=== PATIENT | female | born 1935 | race Caucasian/White ===

== ENCOUNTER 2018-02-28 15:23 | Emergency (ER) | payer MEDICARE, OTHER, SELFPAY ==
[2018-02-28 15:25] VITALS: BP 124/71; PULSE 80; RESP 14; TEMP 36.7; O2SAT 96; BMI 22.9
--- NOTE | 2018-02-28 16:10 | RAD_ITS ---
STUDY: X-RAY CHEST REASON FOR EXAM: Female, 82 years old. Weakness TECHNIQUE: Frontal view of the chest COMPARISON: None. FINDINGS: The lungs are clear. There are no pleural effusions. There is no pneumothorax. The heart is normal in size. The visualized osseous structures are within normal limits. RAD/Chest 1 View IMPRESSION: No acute thoracic pathology. Electronically Signed: Say Dorman, at 16:37 EDT Tel , Service support ,
--- NOTE | 2018-02-28 16:10 | CT_ITS ---
STUDY: CT BRAIN WITHOUT CONTRAST REASON FOR EXAM: Female, 82 years old. Right-sided weakness RADIATION DOSAGE (If Supplied By Facility): CTDIvol = ( 60.81 ) mGy, DLP = ( 1112.69 ) mGycm TECHNIQUE: Transaxial CT imaging of the brain was performed without administration of intravenous contrast material. Individualized dose optimization techniques were used for this CT. COMPARISON: None. FINDINGS: There is no acute bleed or infarct. There are chronic ischemic and atrophic changes. 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 The ventricles are normal in configuration. There is no hydrocephalus. The visualized paranasal sinuses are clear. The mastoid air cells are well aerated. There is no skull fracture. CT/Brain/Head without Contrast IMPRESSION: No acute intracranial abnormality. Chronic ischemic and atrophic changes. Lipoma of the corpus callosum. Electronically Signed: Say Dorman, at 17:45 EDT Tel , Service support ,
--- NOTE | 2018-02-28 16:10 | EKG12_ITS ---
Test Reason : NEURO S/SX Blood Pressure : / mmHG Vent. Rate : 065 BPM Atrial Rate : 065 BPM P-R Int : 178 ms QRS Dur : 080 ms QT Int : 444 ms P-R-T Axes : 038 028 051 degrees QTc Int : 461 ms Normal sinus rhythm Normal ECG Confirmed by CHRISTY HERNANDEZ ([id number]), senior editor FERNANDO RODARTE ([id number] on 03/12/2018 5:34:49 PM Referred By: ARMAND Confirmed By:CHRISTY HERNANDEZ
--- NOTE | 2018-02-28 16:13 | ED.VISSUMM ---
- ER Visit Summary Date of Service: 02/28/18 Chief Complaint: Right hand numbness History of Present Illness: The patient is a 82 F intermittent right hand numbness. Symptoms started for the first time yesterday around 11:30 AM. Symptoms last for several minutes at a time and she has weakness in her right hand. She is dropping things and her signature has changed. She denies any pain. Denies any speech changes or facial droop. Denies any other weakness. Denies numbness. Denies any symptoms currently. No history of this. 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 She denies any history of high blood pressure, diabetes or high cholesterol. Non-smoker. No blood thinners other than aspirin. No history of heart or lung disease. No history of aortic or other vascular disease signs the retinal occlusion remotely. Physical Examination: Afebrile and vital signs unremarkable. Alert and oriented. No acute distress. Sitting comfortably. Head and neck atraumatic. Heart regular. Lungs clear. Skin appears normal. Cranial nerves grossly intact. Normal strength and sensation. Normal coordination. Normal speech. No facial droop. NIH stroke scale is 0. Test Results: Stroke workup pending. EKG showed sinus rhythm at a rate of 65. No acute changes. Chest x-ray showed no acute findings. CT head showed no acute abnormalities. She has a lipoma at the corpus callosum and chronic changes. Labs unremarkable. Patient was discussed with Dr. Peres. He advised CTA. This showed no acute abnormalities, aneurysms, or other issues. 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 Patient was informed of this. I do not believe it is causing symptoms. She has no chest pain. No surgical indication at this point. Patient requests discharge. She would like to go home and follow-up as an outpatient. I will refer her back to her primary care doctor. Emergency Department Course and Treatment: As above Treatment Plan: Above Disposition: Discharged Impression: 1. Right hand weakness This note was generated with [employer]oo[employer] dictation software. It may contain incorrect words, spelling, and punctuation that were not noted in review of the chart prior to signing ED Disposition - Plan for ED Patient: Chief Complaint: Neuro S/Sx Referrals: Cherry Faye MD [Primary Care Provider] -
[2018-02-28 16:48] LABS: Absolute Lymphocyte Count 2.35 X10^3/ul (0.83-4.51); Basophil# 0.03 X10^3/uL; Basophil% 0.5 % (0-1); Eosinophil# 0.28 X10^3/uL; Eosinophils% 4.6 % (0-5); Hematocrit 39.8 % (37-47); Hemoglobin 13.5 g/dl (12.0-15.0); Lymphocyte # 2.35 X10^3/ul (4.0); Lymphocyte % 38.8 % (19-41); Mean Corp Hgb Conc 33.9 g/gl (32-36); Mean Corpuscular Hgb 32.5 pg (27.0-32.0); Mean Corpuscular Volume 95.9 fL (81-99); Mean Platelet Vol. 10.8 fl (6.2-12.0); Monocyte# 0.43 X10^3/uL; Monocyte% 7.1 % (0-10); Neutrophil # 2.96 X10^3/uL (2.7-7.7); Platelet Count 212 K/mm3 (150-450); RBC Distribution Width CV 13.5 % (11.6-14.6); RBC Distribution Width SD 46.2 fl (35.1-43.9); Red Blood Count 4.15 M/mm3 (4.2-5.4); White Blood Count 6.1 K/mm3 (4.4-11.0)
[2018-02-28 16:58] LABS: POSITIVE COUNT NO; POSITIVE DIFFERENTIAL NO; POSITIVE MORPHOLOGY NO
[2018-02-28 17:06] LABS: Anion Gap 9 (5-15); BUN 27 mg/dL (7-18); BUN/Creat Ratio 28.5 RATIO (10-20); Calcium,Total 9.1 mg/dL (8.5-10.1); Chloride 107 mmol/L (98-107); Creatinine, Serum 0.95 mg/dL (0.55-1.02); EST Glomerular Filtration Rate 60 mL/min (>60); Est Glom Filt Rate - Afr Amer 73 mL/min (>60); Estimated Creatinine Clearance 39.07 ml/min; Glucose 90 mg/dL (74-106); Potassium 3.8 mmol/L (3.5-5.1); Sodium Level 141 mmol/L (136-145)
[2018-02-28 17:13] LABS: Prothrombin Time (Protime)PT. 13.6 SECONDS (11.7-14.9)
[2018-02-28 17:14] LABS: Partial Thromboplast Time 26.6 Seconds (24.1-36.2)
[2018-02-28 17:30] LABS: Bedside Glucose 94 mg/dL (70-110)
--- NOTE | 2018-02-28 18:05 | CT_ITS ---
CTA Head WO/W Contrast INDICATION: RIGHT HAND WEAKNESS SINCE YESTERDAY COMPARISON: None TECHNIQUE: Noncontrast axial CT of the brain (reported separately) followed by high resolution axial CT imaging of the head during intravenous contrast administration, CTA protocol. Multiplanar and MIP reformatted images. 100 mL of Isovue-370 were given. Radiation dose optimization technique and NASCET criteria were applied. FINDINGS: There is unremarkable appearance and normal enhancement of the distal internal carotid arteries at the neck. There is mild arteriosclerotic plaque formation at the right cavernous carotid artery without significant stenosis. The left cavernous carotid artery appears within normal limits. There is symmetric supply to the anterior and middle cerebral arteries and their branching vessels. Posterior circulation demonstrates codominant distal vertebral arteries, normal confluence to the basilar artery, and the basilar artery gives rise to the left posterior cerebral artery. The right posterior cerebral artery is in origin, normal variation. The dural venous sinuses are patent. A midline lipoma is again noted extending superiorly along the corpus callosum. This is a congenital abnormality and does not warrant any further follow-up. CT/CTA Head W/WO Contrast IMPRESSION: No evidence of aneurysm formation or large vessel occlusion. at 1923 Reported and signed by: Nelly Ray MD Electronically Signed: Nelly Ray MD at 19:22 EDT Tel , Service support ,
--- NOTE | 2018-02-28 18:05 | CT_ITS ---
STUDY: CTA NECK WITH CONTRAST REASON FOR EXAM: Female, 82 years old. Right hand weakness RADIATION DOSAGE (If Supplied By Facility): CTDIvol = ( 22.53 ) mGy, DLP = ( 600.35 ) mGycm TECHNIQUE: CT angiography with multi-detector data acquisition was performed from the aortic arch to the skull base following intravenous administration of 100ML ml of Isovue 370 contrast. MIP images were reconstructed from the axial data set. Post-processing of the angiographic images was performed, with multiplanar reformation and 3D reconstruction. Individualized dose optimization techniques were used for this CT. COMPARISON: None. FINDINGS: AORTIC ARCH: Prominent ascending aorta at 4.3 cm in diameter.. Normal origins of the brachiocephalic, left common carotid, and left subclavian arteries. RIGHT CAROTID ARTERIES: Minimal atherosclerotic calcifications at the distal segment of the right common carotid artery (CCA). Minimal atherosclerotic calcifications at the right common carotid bulb. Normal origin of the right internal carotid (ICA) artery without a hemodynamically significant stenosis. Normal visualized cervical portion of the right internal carotid artery. Normal origin of the right external carotid artery (ECA). LEFT CAROTID ARTERIES: Normal left common carotid artery (CCA). Normal left common carotid bulb. Normal origin of the left internal carotid (ICA) artery without a hemodynamically significant stenosis. Normal visualized cervical portion of the left internal carotid artery. Normal origin of the left external carotid artery (ECA). VERTEBRAL ARTERIES: Normal bilateral vertebral arteries. CT/CTA Neck W/WO Contrast IMPRESSION: No hemodynamically significant stenosis of the bilateral cervical carotid and vertebral arteries. Dilated ascending aorta. Electronically Signed: Anibal Wilburn DO at 19:36 EDT Tel [phone], Service support ,
--- NOTE | 2018-02-28 20:01 | ED.DEP ---
ED Disposition - Plan for ED Patient: Chief Complaint: Neuro S/Sx Instructions: ED Weakness [facility] Referrals: Cherry Faye MD [Primary Care Provider] -
[2018-02-28 20:14] VITALS: BP 153/72; PULSE 67; RESP 12; O2SAT 98
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
== END 2018-02-28 20:16 | disposition home or self-care (01) ==
PROVIDERS: Emergency Provider Emergency Medicine; Family Provider Internal Medicine; PCP Internal Medicine
DX: M62.81 Muscle weakness (generalized) (principal); R20.0 Anesthesia of skin; H34.9 Unspecified retinal vascular occlusion; Z79.82 Long term (current) use of aspirin
CPT/HCPCS: 70450; 70496; 70498; 71045; 80048; 82962; 84484; 85025; 85610; 85730; 93005; 99284; Q9967; A4216

== ENCOUNTER 2020-10-22 10:51 | Outpatient (RCR) | payer MEDICARE, OTHER, SELFPAY | END 2020-10-22 23:59 | LOC: IMMUN 10:51 | PROVIDERS: PCP Internal Medicine; Visit Provider Family Medicine | DX: Z23 Encounter for immunization (principal) | CPT/HCPCS: 0011A; 0012A; 91301 ==